=== PATIENT | male | born 1945 | race African-American/Black ===

== ENCOUNTER 2025-01-08 12:22 | Inpatient (IN) | payer OTHER ==
[~2025-01-08] VITALS: Ht 177.8 cm; Wt 87.7 kg
--- NOTE | 2025-01-08 12:59 | ED.PDOC ---
History of Present Illness HPI Comments 79 y.o male with PMHx of BPH, HTN, DM, and Aortic aneurysm- without rupture, presents to the ED from [facility] for initial stabilized medical clearance for a prostate biopsy listed in the transfer papers. Upon ED arrival, patient complained of dizziness/lightheadedness that started this morning and has been constant throughout the day. Patient denies any syncopal episodes, chest pain, SOB, nausea, vomiting or recent head trauma. Chief Complaint: Dizziness Time Seen by MD: 12:45 Reviewed Notes: Nurses Notes, Medications, Allergies Allergies: Coded Allergies: NO KNOWN ALLERGIES (Unverified , 01/08/25) Information Source: Patient Mode of Arrival: Guards Severity: Moderate Timing: Hours Duration: Since onset Past Medical History PAST MEDICAL HISTORY: DM, HTN Past Medical History (Other): BPH, Aortic aneurysm - without rupture Surgical History: Hernia Repair Family History Family History: Reviewed,noncontributory to illness Social History Smoker: Non-Smoker Alcohol: Denies ETOH Use Drugs: Denies Drug Use Lives In: Other ([facility] ) Constitutional: denies: chills, diaphoresis, fatigue, fever, malaise, sweats, weakness, others EENTM: denies: blurred vision, double vision, ear bleeding, ear discharge, ear drainage, ear pain, ear ringing, eye pain, eye redness, hearing loss, mouth pain, mouth swelling, nasal discharge, nose bleeding, nose congestion, nose pain, photophobia, tearing, throat pain, throat swelling, voice changes, others Respiratory: denies: cough, hemoptysis, orthopnea, SOB at rest, shortness of breath, SOB with excertion, stridor, wheezing, others Cardiovascular: denies: chest pain, dizzy spells, diaphoresis, Dyspnea on exertion, edema, irregular heart beat, left arm pain, lightheadedness, palp itations, PND, syncope, others Gastrointestinal: denies: abdomen distended, abdominal pain, blood streaked bowels, constipated, diarrhea, dysphagia, difficulty swallowing, hematemesis, melena, nausea, poor appetite, poor fluid intake, rectal bleeding, rectal pain, vomiting, others Genitourinary: denies: burning, dysuria, flank pain, frequency, hematuria, incontinence, penile discharge, penile sore, pain, testicle pain, testicle swelling, urgency, others Neurological: reports: dizziness; denies: fainting, headache, left sided numbness, left sided weakness, numbness, paresthesia, pre-existing deficit, right sided numbness, right sided weakness, seizure, speech problems, tingling, tremors, weakness, others Musculoskeletal: denies: back pain, gout, joint pain, joint swelling, muscle pain, muscle stiffness, neck pain, others Integumetry: denies: bruises, change in color, change in hair/nails, dryness, laceration, lesions, lumps, rash, wounds, others Allergic/Immunocompromised: denies: Difficulty Healing, Frequent Infections, Hives, Itching, others Hematologic/Lymphatic: denies: anemia, blood clots, easy bleeding, easy bruising, swollen glands, others Endocrine: denies: excessive hunger, excessive sweating, excessive thirst, excessive urination, flushing, intolerance to cold, intolerance to heat, unexplained weight gain, unexplained weight loss, others Psychiatric: denies: anxiety, bipolar disorder, depression, hopeless, panic disorder, schizophrenia, sleepless, suicidal, others All Other Systems: Reviewed and Negative Physical Exam General Appearance: No Apparent Distress HEENT: Other (Pupils and face symmetric. Moist mucous membranes.) Neck: Full Range of Motion, Normal Inspection Respiratory: Lungs Clear, No Accessory Muscle Use, No Respiratory Distress, Normal Breath Sounds Cardiovascular: No Edema, No JVD, Regular Rate/Rhythm Breast Exam: Deferred Gastrointestinal: Non Tender, Soft Genitalia: Deferred Pelvic: Deferred Rectal: Deferred Extremities: Normal inspection, Normal range of motion, Non-tender, No pedal edema Neurologic: Alert (Oriented x4), Normal Affect, Normal Mood, Other (Ambulatory without difficulty) Cerebellar Function: NOT DONE Reflexes: NOT DONE Skin: Dry, Normal Color, Warm Lymphatic: NOT DONE Was a procedure done? Was a procedure done?: No EKG EKG : Comments Sinus rhythm, rate 91, normal intervals, left axis deviation, occasional PACs, l eft anterior fascicular block, nonspecific T change Differential Dx Considerations may include: Dehydration, orthostasis, Electrolyte imbalance, Viral Syndrome, Vertigo, arrhythmia, DC, CVA, TIA, among others X-Ray, Labs, Meds, VS Vital Signs Date Time Temp Pulse Resp B/P (MAP) Pulse Ox O2 Delivery O2 Flow Rate FiO2 01/08/25 12:30 98.0 94 16 176/91 (119) 96 98.0 01/08/25 12:29 91 Lab Test 01/08/25 14:24 01/08/25 13:05 Range/Units Troponin I High Sensitivity 62 *H 61 *H </=54 ng/L White Blood Count 6.2 4.4-10.8 10^3/uL Red Blood Count 5.19 4.5-5.90 10^6/uL Hemoglobin 14.9 13.5-17.5 g/dL Hematocrit 44.8 41.0-53.0 % Mean Corpuscular Volume 86.4 80.0-100.0 fL Mean Corpuscular Hemoglobin 28.6 28.0-32.0 pg Mean Corpuscular Hemoglobin Concent 33.1 32.0-36.0 g/dL Red Cell Distribution Width 14.5 H 11.8-14.3 % Platelet Count 303 140-450 10^3/uL Mean Platelet Volume 8.1 6.9-10.8 fL Neutrophils (%) (Auto) 72.5 37.0-80.0 % Lymphocytes (%) (Auto) 15.2 10.0-50.0 % Monocytes (%) (Auto) 10.1 0.0-12.0 % Eosinophils (%) (Auto) 1.7 0.0-7.0 % Basophils (%) (Auto) 0.5 0.0-2.0 % Neutrophils # (Auto) 4.5 1.6-8.6 10 ^3/uL Lymphocytes # (Auto) 0.9 0.4-5.4 10 ^3/uL Monocytes # (Auto) 0.6 0-1.3 10 ^3/uL Eosinophils # (Auto) 0.1 0-0.8 10 ^3/uL Basophils # (Auto) 0 0-0.2 10 ^3/uL Nucleated Red Blood Cells 0.3 % Sodium Level 141 136-145 mmol/L Potassium Level 3.7 3.5-5.1 mmol/L Chloride Level 105 98-107 mmol/L Carbon Dioxide Level 22 20-31 mmol/L Anion Gap 14 5-15 Blood Urea Nitrogen 15 9-23 mg/dL Creatinine 1.12 0.700-1.30 mg/dL Glomerular Filtration Rate Calc 68 >90 mL/min BUN/Creatinine Ratio 13.4 10.0-20.0 Serum Glucose 56 L 74-106 mg/dL Calcium Level 9.8 8.7-10.4 mg/dL Total Bilirubin 0.4 0.2-1.0 mg/dL Aspartate Amino Transferase (AST) 39 13-40 U/L Alanine Aminotransferase (ALT) 36 7-40 U/L Alkaline Phosphatase 104 46-116 U/L B-Type Natriuretic Peptide 45.27 0-100 pg/mL Total Protein 7.3 5.7-8.2 g/dL Albumin 4.5 3.2-4.8 g/dL CHEST RADIOGRAPH Indication: Dizzy Technique: Single frontal view of the chest was obtained Comparison: None FINDINGS: Lines and Tubes: None Lungs: No focal consolidation. Pleura: No effusion. No pneumothorax. Cardiomediastinal contours: Unremarkable Bones: No acute osseous abnormality. IMPRESSION: 1. No acute cardiopulmonary disease. X-Ray, Labs, Meds, VS Comment 79-year-old male with a history of hypertension, diabetes, BPH and aortic aneurysm brought in for preprocedural clearance for prostate biopsy. On arrival, patient states he has been dizzy since this morning. Vitals remarkable for BP 176/91 Exam unremarkable Rhythm strip independently interpreted by me: Sinus rhythm, rate 91, no ectopy. Chest x-ray unremarkable CBC unremarkable, CMP remarkable for glucose 56, BNP normal, serial troponins 61 and 62 Patient treated with the following in the ED: D50 50 mL IV On re-evaluation, patient's exam is unchanged. Vitals are stable. Plan is to admit the patient for blood glucose stabilization, Cardiology evaluation, possible prostate biopsy. Time of 1ST Reevaluation: 12:55 Reevaluation 1ST: Unchanged Patient Education/Counseling: Diagnosis, Treatment, Prognosis Family Education/Counseling: No Family Present Departure 1 Departure Time of Disposition: 16:23 Impression: Primary Impression: Hypoglycemia Additional Impression: Elevated troponin Disposition: 09 ADMITTED INPATIENT Admit to: Tele Condition: Guarded Critical Care Note Critical Care Time?: No Stability Stability form required: No Heart Score Heart Score: Heart Score Response (Comments) Value History N/A 0 EKG N/A 0 Age N/A 0 Risk Factors N/A 0 Troponin N/A 0 Total 0 I personally scribed for OMAR CASTANON MD ([email or web address]) on 01/08/25 at 12:59. Electronically submitted by Isamar Benedict ([facility]). I personally scribed for OMAR CASTANON MD ([facility] on 01/08/25 at 13:40. Electronically submitted by Isamar Benedict ([facility]). OMAR CASTANON MD Jan 08, 2025 12:59
--- NOTE | 2025-01-08 13:16 | ECG ---
[facility] Test Date: 2025-01-08 Test Time: 12:29:43 Pat Name: JAUN ZHANG Department: ED Room: 0235 Gender: M Tear Down Matcher: NIKKO : 1945 Requested By: OMAR JOSEPH Order Number: [id number] Reading MD: Ramos Pickens Measurements Intervals Lilly Rate: 91 P: 64 IN: 136 QRS: -82 QRSD: 96 T: 51 QT: 371 QTc: 457 Interpretive Statements Sinus rhythm Atrial premature complexes Left anterior fascicular block Consider right ventricular hypertrophy Baseline wander in lead(s) V2 Electronically Signed On 01-10-2025 17:08:17 PDT by Ramos Pickens Please click the below link to view image of tracing.
--- NOTE | 2025-01-08 13:27 | DVH ---
CHEST RADIOGRAPH Indication: Dizzy Technique: Single frontal view of the chest was obtained Comparison: None FINDINGS: Lines and Tubes: None Lungs: No focal consolidation. Pleura: No effusion. No pneumothorax. Cardiomediastinal contours: Unremarkable Bones: No acute osseous abnormality. IMPRESSION: 1. No acute cardiopulmonary disease.
[2025-01-08 13:32] LABS: Alanine Aminotransferase 36 U/L (7-40); Albumin 4.5 g/dL (3.2-4.8); Alkaline Phosphatase 104 U/L (46-116); Anion Gap 14 (5-15); Aspartate Aminotransferase 39 U/L (13-40); BUN/Creatinine Ratio 13.4 (10.0-20.0); Blood Urea Nitrogen 15 mg/dL (9-23); Calcium 9.8 mg/dL (8.7-10.4); Carbon Dioxide 22 mmol/L (20-31); Chloride 105 mmol/L (98-107); Potassium 3.7 mmol/L (3.5-5.1); Sodium 141 mmol/L (136-145); Total Protein 7.3 g/dL (5.7-8.2)
[2025-01-08 13:33] LABS: Bilirubin, Total 0.4 mg/dL (0.2-1.0); Glucose 56 mg/dL (74-106)
[2025-01-08 13:44] LABS: Basophils # (auto) 0 10 ^3/uL (0-0.2); Basophils % (auto) 0.5 % (0.0-2.0); Eosinophils # (auto) 0.1 10 ^3/uL (0-0.8); Eosinophils % (auto) 1.7 % (0.0-7.0); Hematocrit 44.8 % (41.0-53.0); Hemoglobin 14.9 g/dL (13.5-17.5); Lymphocytes # (auto) 0.9 10 ^3/uL (0.4-5.4); Lymphocytes % (auto) 15.2 % (10.0-50.0); Mean Corpuscular Hemoglobin 28.6 pg (28.0-32.0); Mean Corpuscular Hgb Conc. 33.1 g/dL (32.0-36.0); Mean Corpuscular Volume 86.4 fL (80.0-100.0); Monocytes # (auto) 0.6 10 ^3/uL (0-1.3); Monocytes % (auto) 10.1 % (0.0-12.0); Neutrophils # (auto) 4.5 10 ^3/uL (1.6-8.6); Neutrophils % (auto) 72.5 % (37.0-80.0); Nucleated Red Blood Cells % 0.3 %; Platelet Count (auto) 303 10^3/uL (140-450); Red Blood Cells 5.19 10^6/uL (4.5-5.90); Red Cell Distribution Width 14.5 % (11.8-14.3); White Blood Cell 6.2 10^3/uL (4.4-10.8)
[2025-01-08] MEDS ORDERED: DEXTROSE (50%) 50ML SYRG IV PRN (18:15)
[2025-01-08] MEDS ORDERED: NITROGLYCERIN 0.4 MG SL TAB SL PRN (18:15)
[2025-01-08] MEDS ORDERED: MORPHINE SULFATE INJ 2 MG/ml SYRG IV PRN (18:15)
[2025-01-08] MEDS: DEXTROSE (50%) 50ML SYRG IV ONE (19:20)
[2025-01-08 20:13] LABS: INR 1.05 (0.9-1.15); Partial Thromboplastin Time 25.6 SEC (24.5-34.5); Prothrombin Time 11.1 sec (9.3-11.8)
[2025-01-08 21:19] VITALS: PULSE 100; RESP 20; O2SAT 100
--- NOTE | 2025-01-08 21:32 | DVHHP ---
ADMIT DATE: 01/08/2025 ATTENDING PHYSICIAN: Irineo Ulloa MD CHIEF COMPLAINT: Prostate biopsy. HISTORY OF PRESENT ILLNESS: This is a 79-year-old male, [facility] inmate, who was scheduled approximately a month ago for a biopsy on 01/09/2025, but it was noted that his preop labs showed sugars around 300 and a hemoglobin of 9 and I was called earlier today to admit the patient for further investigation and to complete the prep for tomorrow's procedure. At this time, the patient has no complaints. He denies any pain. Specifically, he denies any chest pain, cough, shortness of breath, or fever. He denies any blood in urine or stool. PAST MEDICAL HISTORY: He has diabetes, for which he takes insulin on a sliding scale. He also has hypertension, for which he takes lisinopril and amlodipine. PAST SURGICAL HISTORY: He has had left inguinal herniorrhaphy. FAMILY HISTORY: Denies. SOCIAL HISTORY: He denies smoking, alcohol, or drug use. He is . He has 20 children. He has been incarcerated for 38 years and serving a life sentence. No exercise program. REVIEW OF SYSTEMS: GENERAL: Denies any recent weight changes. HEENT: Denies any loss of consciousness or severe headache. CARDIOVASCULAR: Denies chest pain or heart disease. RESPIRATORY: Denies cough, shortness of breath, or hemoptysis. GI: Denies nausea or vomiting. : Noncontributory. NEUROLOGIC: Denies any focal deficit. PHYSICAL EXAMINATION: VITAL SIGNS: His temperature is 98 with a blood pressure of 176/91, heart rate of 94, respiratory rate is 16, O2 saturation is 96% on room air. HEENT: Normocephalic, anicteric sclerae, pink conjunctivae. EOMI. NECK: Supple. No JVD, mass, or bruit. CHEST: Good equal excursion bilateral, nontender. HEART: S1, S2 regular. No click, murmur, or gallop. LUNGS: Good equal air exchange bilateral. Clear to auscultation. ABDOMEN: Soft, nondistended, nontender. Bowel sounds are positive. No mass, guarding, or rebound. NEUROLOGIC: He is awake, alert, and oriented x4. He is without any focal deficits. EXTREMITIES: Negative ECC. LABORATORY DATA: We have a sodium of 141, potassium of 3.7, BUN 15, creatinine 1.12, glucose of 56, on Accu-Chek later was 116. Liver enzymes were normal. Troponin was 61, repeat is 62. WBC is 6.2 with a hemoglobin of 14.9 and platelets of 303. PT is 11.1, PTT is 25.6. Chest x-ray shows no cardiopulmonary disease. EKG shows no acute changes. ASSESSMENT: * Elevated PSA. * Diabetes. * Hypertension. PLAN: We will continue with the patient's lisinopril and amlodipine for hypertension. We will do fingerstick with moderate coverage using regular insulin. We will call for Urology consult and I will start the patient on Lovenox for DVT prophylaxis. MD KATHY Reyes/EDIS TID: [id number] RECEIPT: [id number]
[2025-01-08] MEDS: ceFAZolin 2 GM/D5W50ml 50 ML IV ONE (21:58)
[2025-01-08] MEDS: ACCU-CHEK COMFORT CURVE STRIP VI SCH (21:58)
[2025-01-08] MEDS: InsuLIN REG 1unit/0.01ml Soln (100units/ml) SC SCH (21:59)
[2025-01-09] VITALS (7 sets, daily range): BP systolic 123–190; BP diastolic 59–90; PULSE 71–100; RESP 17–18; TEMP 97.4–98.7; O2SAT 93–100
[2025-01-09] MEDS ORDERED: METF-370 PO (04:23)
[2025-01-09] MEDS ORDERED: ATOR10TA PO (04:23)
[2025-01-09] MEDS ORDERED: LISI20TA56 PO (04:23)
[2025-01-09] MEDS ORDERED: ALBUAER3 IN (04:23)
[2025-01-09] MEDS ORDERED: INSR100KIT SC (04:23)
[2025-01-09] MEDS ORDERED: DexAMETHasone SOD PHOS 10MG/1ML VIAL INJ ONE (07:27)
[2025-01-09] MEDS ORDERED: KETOROLAC TROMETH 30 MG/ML 1ML VIAL ONE (07:27)
[2025-01-09] MEDS ORDERED: LIDOCAINE 1% INJ PF 5ML AMP ONE (07:27)
[2025-01-09] MEDS ORDERED: ONDANSETRON HCL 4 MG/2 ML VIAL ONE (07:27)
[2025-01-09] MEDS ORDERED: PROPOFOL 10 MG/ML 20 ML IV ONE (07:28)
[2025-01-09] MEDS ORDERED: GLYCOPYRROLATE 0.2 MG/ML 1ML VIAL ONE (07:28)
[2025-01-09] MEDS ORDERED: KETAMINE 50mg/ML 1ml syringe ONE (07:28)
[2025-01-09] MEDS: amLODIPine BESYLATE 5 MG TAB PO SCH (08:28)
[2025-01-09] MEDS: LISINOPRIL 5 MG TAB PO SCH (08:29)
[2025-01-09] MEDS: HYDROcodone-ACET 10/325MG TAB PO PRN (08:30)
[2025-01-09] MEDS: FLEET ENEMA(ADULT) 135 ML PR ONE (08:49)
[2025-01-09] MEDS: LIDOCAINE 2% JELLY 11ml (GLYDO) ONE (09:43)
[2025-01-09] MEDS: LIDOCAINE 1%-Mpf/Epinephrine 1:200,000 30ml VIAL ONE (09:43)
--- NOTE | 2025-01-09 10:19 | DVHNC2 ---
Procedure - OPERATIVE REPORT Pre-op. Diagnosis: Elevated PSA Post-op. Diagnosis: Same as pre-op diagnosis Operation: Prostate Biopsyl, saturation extended pattern - CPT 14768 Transrectal ultrasound - CPT 61951 Anesthesia: Local with Lidocaine 1% Indications: Patient has a history of rising PSA. Patient had been prepped with fleet enema, was started on antibiotics and had abstained from blood thinners for at least 7 days. Complication including but not limited to infection, bleeding into urethra, bladder, rectum, ejaculate, as well as urinary retention were discussed, informed consent was obtained. Details of Procedure: Patient was placed in the position. A trans-rectal ultrasound was inserted, prostate was measured at 62.5 grams. Bilateral periprostatic nerve block is administered. Next, extended twelve core biopsies were obtained thru a transrectall technique and under real-time ultrasound. Patient tolerated the procedure well and was transferred to the recovery in satisfactory condition. Specimens: 12 Cores Complications: None NOEMI BLEDSOE MD Jan 09, 2025 10:19
--- NOTE | 2025-01-09 10:24 | DVHINCON2 ---
Date of service: Jan 09, 2025 Referring Physician Irineo Ulloa MD Reason for Consultation Elevated PSA 5.36 (4K SCORE 16.3%) History of Present Illness Patient seen for urology clinic for elevated PSA is admitted for prostate biopsy. Per anesthesia, due to lack of cardiac clearance patient could not be sedated. I elected to proceed with local anesthetic with lidocaine injection for periprosthetic block Past Medical History Diabetes mellitus Family History: Patient reports no known family medical history. Allergies: Coded Allergies: NO KNOWN ALLERGIES (Unverified , 01/08/25) Home Meds Reported Medications Metformin Hydrochloride (Metformin Hcl) 500 Mg Tab, 1 TAB PO BID, #60 TAB 3 Refills 01/09/25 Lisinopril (Lisinopril) 20 Mg Tab, 1 TAB PO DAILY, #30 TAB 5 Refills 01/09/25 Insulin Regular (Human) (INSULIN DRIP KIT (OPEN HEART ONLY)) 100 Units/100 Ml Iv, 100 UNITS SC AC, INJ 01/09/25 Atorvastatin Calcium (Lipitor) 10 Mg Tab, 1 TAB PO QPM, #90 TAB 1 Refill 01/09/25 Albuterol Sulfate (VENTOLIN MDI) 90 Mcg Ih, 90 MCG IN, INH 01/09/25 Current Medications Current Medications Medications (Trade) Dose Ordered Sig/Sakshi Route PRN Reason Start Time Stop Time Status Last Admin Nitroglycerin (Ntrostat Sublingual) 0.4 mg Q5MINP PRN SL FOR CHEST PAIN 01/08/25 18:15 Morphine Sulfate 2 mg Q30M PRN IV FOR CHEST PAIN 01/08/25 18:15 01/08/25 21:01 DC Diagnostic Test (Pha) (Accu-Chek Comfort Curve T) 1 strip BID 01/08/25 22:00 01/08/25 21:58 Insulin Human Regular (InsuLIN R) BID SC 01/08/25 22:00 01/08/25 21:59 Dextrose 50 ml UD PRN IV Blood Sugar LESS THAN 60 01/08/25 18:15 Lisinopril (Zestril Tablet) 10 mg DAILY PO 01/09/25 10:00 01/09/25 08:29 Acetaminophen/ Hydrocodone Bitart ([place] 10/325MG Tab) 1 tab Q4HP PRN PO (4-10 PAIN SCALE) 01/08/25 21:00 01/09/25 08:30 Amlodipine Besylate (Norvasc Tablet) 10 mg DAILY PO 01/09/25 10:00 01/09/25 08:28 Enoxaparin Sodium (Lovenox) 40 mg DAILY SC 01/09/25 10:00 Review of Systems No significant voiding issues Vital Signs Vital Signs Date Time Temp Pulse Resp B/P (MAP) Pulse Ox O2 Delivery O2 Flow Rate FiO2 01/09/25 08:29 166/101 01/09/25 05:00 98.0 71 17 99 98.0 01/09/25 03:13 Room Air* 0 21 Physical Exam No acute distress Labs/Diagnostic Data Labs Test 01/09/25 09:56 01/08/25 19:33 01/08/25 14:24 01/08/25 13:05 Range/Units POC Glucose 56 L 70-106 mg/dl Prothrombin Time 11.1 9.3-11.8 sec Prothrombin Time INR 1.05 0.9-1.15 Activated Partial Thromboplast Time 25.6 24.5-34.5 SEC Troponin I High Sensitivity 62 *H </=54 ng/L White Blood Count 6.2 4.4-10.8 10^3/uL Red Blood Count 5.19 4.5-5.90 10^6/uL Hemoglobin 14.9 13.5-17.5 g/dL Hematocrit 44.8 41.0-53.0 % Mean Corpuscular Volume 86.4 80.0-100.0 fL Mean Corpuscular Hemoglobin 28.6 28.0-32.0 pg Mean Corpuscular Hemoglobin Concent 33.1 32.0-36.0 g/dL Red Cell Distribution Width 14.5 H 11.8-14.3 % Platelet Count 303 140-450 10^3/uL Mean Platelet Volume 8.1 6.9-10.8 fL Neutrophils (%) (Auto) 72.5 37.0-80.0 % Lymphocytes (%) (Auto) 15.2 10.0-50.0 % Monocytes (%) (Auto) 10.1 0.0-12.0 % Eosinophils (%) (Auto) 1.7 0.0-7.0 % Basophils (%) (Auto) 0.5 0.0-2.0 % Neutrophils # (Auto) 4.5 1.6-8.6 10 ^3/uL Lymphocytes # (Auto) 0.9 0.4-5.4 10 ^3/uL Monocytes # (Auto) 0.6 0-1.3 10 ^3/uL Eosinophils # (Auto) 0.1 0-0.8 10 ^3/uL Basophils # (Auto) 0 0-0.2 10 ^3/uL Nucleated Red Blood Cells 0.3 % Sodium Level 141 136-145 mmol/L Potassium Level 3.7 3.5-5.1 mmol/L Chloride Level 105 98-107 mmol/L Carbon Dioxide Level 22 20-31 mmol/L Anion Gap 14 5-15 Blood Urea Nitrogen 15 9-23 mg/dL Creatinine 1.12 0.700-1.30 mg/dL Glomerular Filtration Rate Calc 68 >90 mL/min BUN/Creatinine Ratio 13.4 10.0-20.0 Serum Glucose 56 L 74-106 mg/dL Calcium Level 9.8 8.7-10.4 mg/dL Total Bilirubin 0.4 0.2-1.0 mg/dL Aspartate Amino Transferase (AST) 39 13-40 U/L Alanine Aminotransferase (ALT) 36 7-40 U/L Alkaline Phosphatase 104 46-116 U/L B-Type Natriuretic Peptide 45.27 0-100 pg/mL Total Protein 7.3 5.7-8.2 g/dL Albumin 4.5 3.2-4.8 g/dL Assessment Elevated PSA Plan/Recommendation Fleet enema Transrectal ultrasound guided prostate biopsy Plan discussed with: Patient, Other NOEMI BLEDSOE MD Jan 09, 2025 10:24
[2025-01-09] MEDS: CIPROFLOXACIN 400MG/200ML 200 ML IV ONE (12:19)
[2025-01-09] MEDS: ENOXAPARIN SOD 40 MG/0.4 ML SYRINGE SC SCH (12:21)
[2025-01-09] MEDS: CIPROFLOXACIN HCL 500 MG TAB PO SCH (21:49)
--- NOTE | 2025-01-09 22:04 | DVHPN ---
DATE: 01/09/2025 ATTENDING PHYSICIAN: Dr. Irineo Ulloa SUBJECTIVE: The patient is sitting up in bed. He seems to be in good spirits. He is comfortable. He is in no active distress. He had a prostate biopsy in the OR today done under local. The patient is aware that 12 bites were taken. He denies any bleeding or he denies any pain at this time, but he has been in the bed the whole time. He has not ambulated. OBJECTIVE: VITAL SIGNS: His temperature is 97.9 with a blood pressure of 146/87, heart rate of 85, respiratory rate of 18, and O2 sat 93% on room air. HEART: S1, S2 regular. No click, murmur, or gallop. LUNGS: Good equal air exchange, bilateral. Clear to auscultation. ABDOMEN: Soft, nondistended, nontender. Bowel sounds positive. No mass, guarding, or rebound. NEUROLOGIC: He is awake, alert, and oriented x 4 without focal deficits. LABORATORY DATA: Glucose is 56 and 88. ASSESSMENT: * Elevated PSA. * Diabetes. * Hypertension. PLAN: We will continue with Accu-Chek with sliding scale insulin using moderate coverage. We will continue to use amlodipine and lisinopril for the hypertension and Lovenox for DVT prophylaxis. I have stressed with the patient the need to ambulate while he is still in the hospital. Should any untoward become of it, I need for it to happen here while he is still with us rather than when he is returned to the [facility]. He agrees. MD KATHY Reyes/SEBASTIAN TID: [id number] RECEIPT: [id number]
[2025-01-10 01:00] VITALS: BP 127/69; PULSE 88; RESP 20; TEMP 98.3; O2SAT 96
[2025-01-10 05:00] VITALS: BP 156/87; PULSE 80; RESP 20; TEMP 98.1; O2SAT 98
[2025-01-10 08:00] VITALS: PULSE 76; RESP 18; O2SAT 96
[2025-01-10 09:00] VITALS: BP 163/84; PULSE 76; RESP 19; TEMP 98.4; O2SAT 95
[2025-01-10 13:00] VITALS: BP 132/77; PULSE 83; RESP 19; TEMP 98.4; O2SAT 97
[2025-01-10 17:00] VITALS: BP 139/79; PULSE 89; RESP 20; TEMP 98.6; O2SAT 96
[2025-01-10] MEDS ORDERED: AML5T PO (17:55)
--- NOTE | 2025-01-10 19:14 | DVHDS ---
DATE OF DISCHARGE: 01/10/2025 ATTENDING PHYSICIAN: Irineo Ulloa MD CHIEF COMPLAINT ON ADMISSION: Prostate biopsy. HISTORY OF PRESENT ILLNESS: This is a 79-year-old male [facility] inmate who was scheduled approximately 1 month ago for a prostate biopsy on 01/09/2025. It was noted that his preop labs revealed elevated sugar around 300, hemoglobin of 9, and I was called to admit the patient to investigate and prep the patient for noted procedure. He was admitted for further management. ADMITTING DIAGNOSES: * Elevated PSA. * Diabetes. * Hypertension. HOSPITAL COURSE: He was admitted to [facility] in stable condition. He was started on lisinopril and amlodipine for the hypertension. He was given fingersticks with moderate coverage using regular insulin for the elevated blood sugar, Lovenox for DVT prophylaxis and Urology was consulted. The patient was taken to the OR on second hospital day and underwent transrectal biopsy of prostate. The patient tolerated the procedure well and was returned to the medical floor in stable condition. The remainder of stay at the medical floor was unremarkable. The patient had no hematuria, pain, nor difficulty urinating. He is tolerating regular diet and he is afebrile. Accu-Cheks revealed that blood sugars were running a little high and he was covered with regular insulin. He is now being discharged back to the care of the [facility] authorities in good and stable condition. DISCHARGE DIAGNOSES: * Elevated PSA status post prostate biopsy. * Diabetes. * Hypertension. PLAN: He is instructed to resume prehospitalization medication and to start amlodipine 5 mg p.o. daily for the hypertension. He is also instructed that he needs to follow up with the Urology Clinic here at [facility] with Dr. Hopkins to discuss the results of the biopsy and what, if any, further treatment is needed. MD KATHY Reyes/SEBASTIAN TID: [id number] RECEIPT: [id number]
== END 2025-01-10 20:54 | DRG 726 ==
LOC: EEVIPCON 12:22 → ER 12:38 → OVERFLOW 18:15 → EEVIPCON 18:15 → EAST 01-09 02:51
PROVIDERS: ADMIT Internal Medicine; ATTEND Internal Medicine
PROC: 0VB03ZX Excision of Prostate, Percutaneous Approach, Diagnostic (ICD-10-PCS; principal; 2025-01-09 10:04)
DX: N40.0 Benign prostatic hyperplasia without lower urinary tract symptoms (principal); I10 Essential (primary) hypertension; E11.649 Type 2 diabetes mellitus with hypoglycemia without coma; R79.89 Other specified abnormal findings of blood chemistry; Z79.4 Long term (current) use of insulin
CPT/HCPCS: 36415; 71045; 80053; 82962; 83880; 84484; 85025; 85610; 85730; 93005; 96365; G0378; J1100; J1815; J1885; J2405; J2704